=== PATIENT | male | born 1945 | race Asian ===

== ENCOUNTER → 2023-09-28 14:14 | Outpatient (REF) | payer OTHER, SELFPAY | LOC: HWRAD 14:14 | PROVIDERS: ATTENDING PHYSICIAN Specialist | DX: N18.31 Chronic kidney disease, stage 3a (principal) | CPT/HCPCS: 76775 ==

== ENCOUNTER 2024-02-15 12:09 | Emergency (ER) | payer OTHER, SELFPAY ==
[2024-02-15 12:33] VITALS: BP 158/74
[2024-02-15 13:07] LABS: % Basophils 0.4 % (0-2); % Eosinophils 1.2 % (0-6); % Immature Granulocytes 0.4 % (0-0.5); % Lymphocytes 26.6 % (20.5-51.1); % Monocytes 7.4 % (1.7-9.3); Absolute Eosinophils 0.1 10^3/uL (0-0.7); Absolute Lymphocytes 1.8 10^3/uL (1.2-3.4); Absolute Monocytes 0.5 10^3/uL (0.1-0.6); Absolute Neutrophils 4.3 10^3/uL (1.4-6.5); Hemoglobin 9.6 g/dL (13.0-18.0); Mean Corpuscular Hgb 19.8 pg (27.0-31.0); Mean Corpuscular Volume 63.9 fL (80.0-94.0); Mean Platelet Volume 8.6 fL (7.4-10.4); Nucleated Red Blood Cells % 0 % (-); Platelet Count 164 10^3/uL (130-400); Red Blood Cell Count 4.85 10^6/uL (4.70-6.10); Red Cell Dist. Width 17.4 % (11.5-14.5); White Blood Cell Count 6.7 10^3/uL (4.8-10.8)
[2024-02-15 13:13] LABS: Urine Albumin Negative (Neg - Trace); Urine Bilirubin Negative (Negative); Urine Character Clear (Clear); Urine Color Yellow; Urine Glucose Negative (Negative); Urine Ketone Negative (Negative); Urine Leukocyte 1+ (Negative); Urine Nitrite Negative (Negative); Urine Occult Blood Negative (Negative); Urine Specific Gravity 1.015 (<1.030); Urine Urobilinogen Negative (Neg - 1+)
[2024-02-15 13:21] LABS: ALT (SGPT) 19 U/L (0-50); AST (SGOT) 24 U/L (17-59); Albumin 4.3 g/dl (3.5-5.0); Alkaline Phosphatase 89 U/L (38-126); Blood Urea Nitrogen 24 mg/dl (9-20); Calcium 9.1 mg/dl (8.4-10.2); Carbon Dioxide 33 mmol/L (22-30); Chloride 102 mmol/L (98-107); Glucose 115 mg/dl (70-99); Lipase 107 U/L (23-300); Potassium 4.8 mmol/L (3.5-5.1); Sodium 142 mmol/L (135-145); Total Bilirubin 0.6 mg/dl (0.2-1.3); Total Protein 7.5 g/dl (6.3-8.2); eGFR > 60.00
[2024-02-15 14:15] VITALS: BP 147/82; BMI 26.3
[2024-02-15 14:36] LABS: Urine Mucus Moderate
[2024-02-15 14:37] LABS: Urine Red Blood Cell 0-2 /HPF (0-2)
[2024-02-15 14:38] LABS: Urine Bacteria Moderate (Negative); Urine White Cell 26-30 /HPF (0-5)
--- NOTE | 2024-02-15 15:14 | ED.GENMED ---
Addendum entered and electronically signed by OZZIE Ambrosio 02/18/24 13:02:
pt has uti e coli . pt was dx w/ diverticulitis and is on levofloxacin and flagyl which will cover the UTI . I did speak with patient over the phone and made him aware of the UTI and the need for repeat reevaluation and repeat urinalysis by
family doctor after antibiotics are completed. He does mention urinary frequency that this is not new for him. He denies any fever chills nausea vomiting.
Original Note:
History of Present Illness
General
Chief Complaint: Abdominal Pain
Source: patient
Exam Limitations: none
Time Seen by Provider: 02/15/24 14:21
Nursing documentation reviewed up to this point in time: agreed with
History of Present Illness
History of Present Illness:
Patient presents to ED secondary to persistent left-sided abdominal pain over the past 3 days. Abdominal pain described as sharp, nonradiating, without any alleviating or exacerbate factors. Denies trauma. Denies fever or chills. Denies
diarrhea. Denies back pain. Denies difficulty urination. Denies previous history of similar symptoms. Patient reports having received normal colonoscopy 2 years ago.
Past History
Past History
ED Past Medical History: HTN and Other (thalassemia, kidney stones)
ED Past Surgical History: None
Social History
Tobacco: Non-smoker
Alcohol: None
Drug: None
Personal:
Living: with family
Family History
Family History: CAD (Father with [place] at 72 years old and )
Review of Systems
Review of Systems
Allergies reviewed?: Yes
All Other Systems: ROS reviewed and negative except as documented in HPI and ROS
Constitutional: Reports no symptoms
EENT: Reports no symptoms
Respiratory: Reports no symptoms
Cardiac: Reports no symptoms
ABD/GI: Reports abdominal pain; Denies nausea, vomiting or diarrhea
Musculoskeletal: Reports no symptoms
Skin: Reports no symptoms
Neurological: Reports no symptoms
Phy Exam
Physical Exam
Physical Exam:
Physical Exam
General: mild painful distress, not acutely ill. afebrile
Head: nc/at. eomi
Neck: supple. no meningeal signs.
Heart: s1/s2 regular rate and rhythm, no murmur. equal radial pulses.
Lungs: no acute respiratory distress. clear bilaterally
Abdomen: normal bowel sounds. mild LLQ/suprapubic tenderness to palpation.
Neuro: alert and oriented. no focal neurological deficits
Skin: no rash
Psychiatric: well kept. interactive and cooperative
Extremities: no edema. no calf tenderness.
Course
Orders/Labs/Results
Orders:
Orders
02/15/24 12:47
Complete Blood Count/With Diff Urgent
Comprehensive Metabolic Panel Urgent
Lipase Urgent
Urinalysis Reflex To Culture Urgent
Date Specimen was Collected: 02/15/24
Time Specimen was Collected: 12:37
Urine Microscopic Reflex Cult Urgent
Urine Culture Urgent
CORI Source: U
Specimen Description:
Date Specimen was Collected: 02/15/24
Time Specimen was Collected: 12:37
02/15/24 14:43
CT Abd/pelvis W Iv Cont Urgent
Comment:
Reason For Exam: LLQ pain
02/15/24 15:44
Ketorolac [Toradol] 15 mg IV NOW STA
02/15/24 18:38
LevoFLOXacin [Levaquin] 500 mg PO NOW STA
MetroNIDAZOLE [Flagyl] 500 mg PO NOW STA
Abnormal Lab Results
02/15/24
12:47
Hgb 9.6 L g/dL
(13.0-18.0)
Hct 31.0 L %
(39.0-52.0)
MCV 63.9 L fL
(80.0-94.0)
MCH 19.8 L pg
(27.0-31.0)
MCHC 31.0 L g/dL
(33.0-37.0)
RDW 17.4 H %
(11.5-14.5)
Carbon Dioxide 33 H mmol/L
(22-30)
BUN 24 H mg/dl
(9-20)
Glucose 115 H mg/dl
(70-99)
Leukocyte Esterase Rfl 1+ A
(Negative)
Urine WBC (Reflex) 26-30 A /HPF
(0-5)
Urine Bacteria (Reflex) Moderate A
(Negative)
02/15/24 12:47
02/15/24 12:47
Vital Signs
Initial and Last Documented VS:
Initial Vital Signs
Temp Pulse Resp BP Pulse Ox
97.7 F 67 16 158/74 99
02/15/24 12:33 02/15/24 12:33 02/15/24 12:33 02/15/24 12:33 02/15/24 12:33
Last Documented Vital Signs
Temp Pulse Resp BP Pulse Ox
97.7 F 69 16 141/66 99
02/15/24 12:33 02/15/24 18:22 02/15/24 18:22 02/15/24 18:22 02/15/24 18:22
MDM/Problems Addressed
MDM/Problems Addressed:
CT report reviewed and discussed with oncall colorectal surgery () who also reviewed CT personally. Recommends discharging patient home on empiric 7 day course of abx for potential early diverticulitis, along with outpatient f/u for
inguinal hernia.
Pt and spouse agree with treatment plan. Will return to ED with worsening symptoms, i.e. fever/worsening pain/vomiting
*Critical Care Note
Total Time (30-74mins, 75-104mins- exclusive of procedures): Not Applicable
ED Attending Note
-
Portions of this chart may have been created with voice recognition software.� Occasional wrong word or��sound alike� substitutions may have occurred due to the inherent limitations of voice recognition software.
Discharge Plan
Departure
Patient Disposition: Home (Routine Discharge)
Date of Disposition: 02/15/24
Time of Disposition: 18:38
Patient with high blood pressure during this ER visit?: Yes
Condition: Good
Discharge Problem:
Diverticulitis, Inguinal hernia
Instructions: Diverticulitis (DC), Groin Hernia (DC)
Prescriptions:
New
levofloxacin 500 mg tablet
500 mg PO DAILY Qty: 6 0RF
metronidazole 500 mg tablet
500 mg PO TID Qty: 20 0RF
Referrals:
Bhargav Alvarez MD [Family Provider] -
Jesus Manuel Elias MD [Active] -
Activity Restrictions/Additional Instructions:
As discussed, please follow-up with your primary care physician and/or referred surgeon for further evaluation and treatment. Your prescriptions have been sent electronically to [facility] pharmacy in [place].
Interventions
Interventions:
*Risk Screen - Suicide Last Done: 02/15/24 12:33
*General Assessment Last Done: 02/15/24 12:33
*Neglect/Abuse Screening Last Done: 02/15/24 12:33
ED- Fall Risk Assessment Last Done: 02/15/24 18:50
*ED COVID-19 Vaccine History Last Done: 02/15/24 14:05
*Nursing Disposition Last Done: 02/15/24 18:50
NT-Tzozxw-Mvxstyhkki Assessment Last Done: 02/15/24 14:06
Discharge Date and Time
Discharge Date/Time: 02/15/24 18:56
Print Language: DIVEHI
[2024-02-15] MEDS: TORADOL 15 MG IV (15:47)
[2024-02-15 16:01] VITALS: BP 142/75
[2024-02-15 18:22] VITALS: BP 141/66
[2024-02-15] MEDS: LEVAQUIN 500 MG PO (18:46)
[2024-02-15] MEDS: FLAGYL 500 MG PO (18:46)
== END 2024-02-15 18:56 | disposition home or self-care (01) ==
LOC: EMR 12:09
PROVIDERS: Emergency Medicine; EMERGENCY PHYSICIAN Emergency Medicine; FAMILY PHYSICIAN Internal Medicine
DX: K57.32 Diverticulitis of large intestine without perforation or abscess without bleeding (principal); K40.90 Unilateral inguinal hernia, without obstruction or gangrene, not specified as recurrent; D56.9 Thalassemia, unspecified; I10 Essential (primary) hypertension
CPT/HCPCS: 99284; 96374; 74177; 80053; 81003; 81015; 83690; 85025; 87071; 87086; 87186; Q9967

== ENCOUNTER → 2024-04-01 19:13 | Outpatient (REF) | payer OTHER, SELFPAY | LOC: MRI 3T 19:13 | PROVIDERS: ATTENDING PHYSICIAN Nurse Practitioner Acute Care; FAMILY PHYSICIAN Internal Medicine | DX: D49.0 Neoplasm of unspecified behavior of digestive system (principal) | CPT/HCPCS: 74183; A9575 ==